=== PATIENT | male | born 1950 | race Hispanic/Latino ===

== ENCOUNTER 2018-06-20 10:08 | Emergency (ER) | payer MEDICARE ==
[~2018-06-20] VITALS: Ht 170.2 cm; Wt 87.5 kg
--- NOTE | 2018-06-20 10:47 | NUR ---
PATIENT TO ROOM 5
--- NOTE | 2018-06-20 11:17 | NUR ---
BLADDER SCAN 317
[2018-06-20 11:38] LABS: BASOPHILS % 0.2 % (0.0-1.0); EOSINOPHILS # (AUTO) 0.1 (0.0-0.4); EOSINOPHILS % 0.8 % (0.0-6.0); HEMATOCRIT 43.3 % (38.2-49.6); LYMPHOCYTES # (AUTO) 1.8 (1.0-3.2); LYMPHOCYTES % 13.8 % (18.0-39.1); MEAN CORPUSCULAR HEMOGLOBIN 30.9 pg (28-32); MEAN CORPUSCULAR HGB CONC 34.6 g/dL (31-35); MEAN CORPUSCULAR VOLUME 89.1 fL (81-99); MONOCYTES # (AUTO) 1.3 (0.2-0.8); MONOCYTES % 10.5 % (4.4-11.3); NEUTROPHILS # (AUTO) 9.4 (2.1-6.9); NEUTROPHILS % 74.2 % (38.7-80.0); PLATELET COUNT 217 x10e3/uL (140-360); RED BLOOD COUNT 4.86 x10e6/uL (4.3-5.7); RED CELL DISTRIBUTION WIDTH 11.9 % (11.7-14.4)
[2018-06-20 11:59] LABS: ALANINE AMINOTRANSFERASE 19 IU/L (0-55); ALBUMIN 3.7 g/dL (3.5-5.0); ALBUMIN/GLOBULIN RATIO 0.9 (0.8-2.0); ALKALINE PHOSPHATASE 94 IU/L (40-150); ANION GAP 10.6 mmol/L (8-16); BLOOD UREA NITROGEN 12 mg/dL (7-26); BUN/CREATININE RATIO 14 (6-25); CALCIUM 9.9 mg/dL (8.4-10.2); CARBON DIOXIDE 28 mmol/L (22-29); CHLORIDE 101 mmol/L (98-107); CREATININE, SERUM 0.88 mg/dL (0.72-1.25); EST GLOMERULAR FILTRATION RATE > 60 ML/MIN (60-); GLUCOSE 85 mg/dL (74-118); MAGNESIUM 2.3 MG/DL (1.3-2.1); POTASSIUM 3.6 mmol/L (3.5-5.1); SODIUM 136 mmol/L (136-145)
--- NOTE | 2018-06-20 12:08 | NUR ---
BLADDER SCAN, 90ML AFTER VOIDING.
[2018-06-20] MEDS ORDERED: CEFTRIAXONE SOD 1 GM/NS 50 ML 50 ML IV ONE (12:45)
[2018-06-20 12:52] LABS: CLARITY,URINE CLEAR (CLEAR); COLOR,URINE YELLOW (YELLOW); KETONES,URINE NEGATIVE (NEGATIVE); LEUKOCYTE ESTERASE ,URINE 1+ (NEGATIVE); NITRITE,URINE NEGATIVE (NEGATIVE); PROTEIN,URINE DIPSTICK TRACE (NEGATIVE); URINE UROBILINOGEN 0.2 mg/dL (0.2 - 1)
[2018-06-20 12:53] LABS: BILIRUBIN,URINE NEGATIVE (NEGATIVE)
[2018-06-20 12:54] LABS: EPITHELIAL CELLS,URINE RARE /LPF; WBC,URINE (MAN) 21-50 /HPF (0-5)
[2018-06-20 12:55] LABS: RBC,URINE 0-5 /HPF (0-5); TRANSITIONAL EPI CELLS,URINE RARE
[2018-06-20 12:56] LABS: BACTERIA,URINE RARE /HPF
--- NOTE | 2018-06-24 14:43 | NUR ---
Reviewed patient Urine culture antibiogram. Patient's prescribed medication accourding to the antibiogram shows the patient is resistant to Cefuroxime. Will call in new prescription to patient's pharmacy for Bactrim DS 1 PO BID x 10 days.
== END 2018-06-20 14:48 | disposition home or self-care (01) ==
LOC: ER 10:08
DX: R33.9 Retention of urine, unspecified (principal); R30.0 Dysuria; N40.1 Benign prostatic hyperplasia with lower urinary tract symptoms; N41.1 Chronic prostatitis
CPT/HCPCS: 36415; 80053; 81001; 83735; 85025; 87086; 87186; 99284; J0696

== ENCOUNTER → 2018-07-20 | Day surgery (SDC) | payer MEDICARE ==
[2018-07-17 13:44] LABS: BASOPHILS % 0.3 % (0.0-1.0); EOSINOPHILS # (AUTO) 0.2 (0.0-0.4); EOSINOPHILS % 2.8 % (0.0-6.0); HEMATOCRIT 43.7 % (38.2-49.6); HEMOGLOBIN 14.9 g/dL (14.0-18.0); LYMPHOCYTES # (AUTO) 1.8 (1.0-3.2); LYMPHOCYTES % 29.7 % (18.0-39.1); MEAN CORPUSCULAR HEMOGLOBIN 30.3 pg (28-32); MEAN CORPUSCULAR HGB CONC 34.1 g/dL (31-35); MEAN CORPUSCULAR VOLUME 88.8 fL (81-99); MONOCYTES # (AUTO) 0.5 (0.2-0.8); MONOCYTES % 7.8 % (4.4-11.3); NEUTROPHILS # (AUTO) 3.5 (2.1-6.9); NEUTROPHILS % 59.1 % (38.7-80.0); PLATELET COUNT 202 x10e3/uL (140-360); RED BLOOD COUNT 4.92 x10e6/uL (4.3-5.7); RED CELL DISTRIBUTION WIDTH 12.3 % (11.7-14.4)
[2018-07-17 14:03] LABS: ANION GAP 10.7 mmol/L (8-16); BLOOD UREA NITROGEN 16 mg/dL (7-26); BUN/CREATININE RATIO 18 (6-25); CALCIUM 9.2 mg/dL (8.4-10.2); CARBON DIOXIDE 26 mmol/L (22-29); CHLORIDE 104 mmol/L (98-107); CREATININE, SERUM 0.89 mg/dL (0.72-1.25); EST GLOMERULAR FILTRATION RATE > 60 ML/MIN (60-); GLUCOSE 97 mg/dL (74-118); POTASSIUM 3.7 mmol/L (3.5-5.1); SODIUM 137 mmol/L (136-145)
--- NOTE | 2018-07-17 14:54 | Diagnostic Imaging Report ---
EXAMINATION: PA and lateral views of the chest. COMPARISON: None CLINICAL HISTORY: Preoperative study for urological procedure DISCUSSION: The lungs are well-inflated. There is blunting of the left lateral and posterior costophrenic sulci which may reflect a small effusion or pleural thickening. Additionally, there is a 2.7 cm nodular opacity projecting over the left lung apex. The right lung is clear. No acute osseous abnormality. 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 IMPRESSION: 2.7 cm left upper lobe nodule should be further evaluated by CT scan of the chest with contrast if not already performed at an outside facility. Associated small left pleural effusion versus pleural thickening. Findings were discussed by telephone with Ms. Lacey, diagnostic medical sonographer for Dr. Rob at 2:45 pm 07/17/18. Signed by: Dr. Stanton Deleon M.D. on 07/17/2018 2:51 PM
[~2018-07-20] MED LIST: AMLODIPINE; ATORVASTATIN CA10 MG PO; BACTRIM 400-801 EACH; BELLADONNA/OPIUM 60 MG SUPP PR ONE; CEFTRIAXONE SOD 1 GM/NS 50 ML 50 ML IV ONE; DEXAMETHASONE SOD PHOS INJ 4 MG/ML VIAL ONE; FENTANYL CITRATE/PF 100MCG/2 ML INJ ONE; GENTAMICIN 80MG/NS 100 ML 100 ML IV ONE; IOPAMIDOL 300MG/ML 50ML INFUS..BTL IV ONE; LIDOCAINE HCL 2% LOCAL INJ 5 ML SDV VIAL INJ ONE; METFORMIN HCL500 MG PO; MIDAZOLAM HCL 2 MG/2 ML VIAL ONE; ONDANSETRON HCL INJ 2MG/ML 2ML 2 MG/ML VIAL ONE; PROPOFOL IV EMULSION 10 MG/ML 20 ML VIAL ONE; SEVOFLURANE INHAL SOLN 250 ML PEN BTL ONE
--- OUTSIDE RECORDS SUMMARY | 2018-07-20 05:11 | XMS REPORT ---
Author [facility] Address Unknown Phone Unavailable Care Team Providers Care Tank Assembler Name Role Phone EDYTA OBRIEN ESTEPHANIA Unavailable ALEX ROB Unavailable Unavailable JAJA HERNANDEZ M.D. Unavailable Unavailable Problems This patient has no known problems. Allergies, Adverse Reactions, Alerts This patient has no known allergies or adverse reactions. Medications This patient has no known medications. Encounters Start Date/Time End Date/Time Encounter Type Admission Type Attending [facility] Care Department Encounter ID 2016-11-07 00:00:00 2016-11-07 00:00:00 Outpatient [facility] [id number] 2016-10-21 16:15:44 2016-10-21 16:15:44 Outpatient [facility] [id number] 2016-10-02 09:24:14 2016-10-02 09:24:14 Outpatient [facility] [id number] Results Test Description Test Time Test Comments Text Results Atomic Results Result Comments CHEST 2 VIEWS 2018-07-17 14:43:00 [facility] [address] [address] Patient Name: KEVIN COYNE MR #: [id number] : 1950 Age/Sex: 67/M Req #: [id number] Adm Physician: Ordered by: ALEX ROB MD Report #: [id number] Location: OR Room/Bed: Procedure: [id number] DX/CHEST 2 VIEWS Exam Date: 07/17/18 Exam Time: 1341 REPORT STATUS: Signed EXAMINATION: PA and lateral views of the chest. COMPARISON: None CLINICAL HISTORY: Preoperative study for urological procedure DISCUSSION: The lungs are well-inflated. There is blunting of the left lateral and posterior costophrenic sulci which may reflect a small effusion or pleural thickening. Additionally, there is a 2.7 cm nodular opacity projecting over the left lung apex. The right lung is clear. No acute osseous abnormality. 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 IMPRESSION: 2.7 cm left upper lobe nodule should be further evaluated by CT scan of the chest with contrast if not already performed at an outside facility. Associated small left pleural effusion versus pleural thickening. Findings were discussed by telephone with Ms. Lacey, manager medical device for Dr. Rob at 2:45 pm 07/17/18. Signed by: Dr. Yo Foy M.D. on 07/17/2018 2:51 PM Dictated By: YO FOY MD 1451 Transcribed By: IRASEMA on 07/17/18 1451 COPY TO: ALEX ROB MD POC Glucose, Blood 2017-06-24 09:58:00 POC Glucose (test code=POCGLUC) 100 mg/dL 70-115 If you consider your patient critically ill, the Micah Accu-Chek InformII metershould not be used for Glucose determinations.Draw a venous Glucose and send to the Main Lab for Analysis. POC Glucose, [id number] 08:05:00* Test Item Value Reference Range Comments POC Glucose (test code=POCGLUC) 98 mg/dL 70-115 If you consider your patient critically ill, the Micah Accu-Chek InformII metershould not be used for Glucose determinations.Draw a venous Glucose and send to the Main Lab for Analysis. Culture, [id number] 09:44:00Specimen: UrineCollected: 06/04/2017 13:00 Status: Final Last Updated: 06/06/2017 09:44 Culture Result (Final) (Final) 06/05/17 No growth 24 hours 06/06/17 No growth 48 hours Urinalysis [id number] 15:14:00* Test Item Value Reference Range Comments Color (test code=COLOR) Yellow Yellow,Straw,Pl yellow Clarity (test code=CLAR) Clear Clear Specific [place] (test code=SPGR) 1.009 1.001-1.035 pH (test code=PH) 7.0 5.0-9.0 Ketone (test code=KET) Negative mg/dL Negative Glucose (test code=GLUCUR) Negative mg/dL Negative Protein (test code=PROT) Negative mg/dL Negative Bilirubin (test code=BILI) Negative mg/dL Negative Occult Blood (test code=UDOB) Negative Negative Urobilinogen (test code=UROB) 0.2 mg/dL 0.2-1.0 Nitrite (test code=NIT) Negative Negative Leuk Esterase (test code=LEUK) Negative Negative Micros Exam (test code=MEXAM) Not indicated Comprehensive Metabolic [id number] 14:17:00* Test Item Value Reference Range Comments Sodium (test code=NA) 138 mmol/L 135-145 Potassium (test code=K) 3.9 mmol/L 3.5-5.1 Chloride (test code=CL) 98 mmol/L 98-105 Carbon Dioxide (test code=CO2) 28 mmol/L 22-29 Glucose (test code=GLU) 126 mg/dL 70-115 Blood Urea Nitrogen (test code=BUN) 13 mg/dL 8-23 Creatinine (test code=CREAT) 0.8 mg/dL 0.7-1.2 Calcium (test code=CA) 9.6 mg/dL 8.3-10.5 Prot Total (test code=TP) 7.6 g/dL 6.4-8.3 Albumin (test code=ALB) 4.5 g/dL 3.5-5.2 A/G Ratio (test code=AGRATIO) 1.5 Ratio Globulin (test code=GLOB) 3.1 2.9-3.1 Bili Total (test code=TBIL) 0.5 mg/dL 0.1-0.9 Alk Phos (test code=APHOS) 120 U/L 40-129 AST (test code=AST) 19 U/L 1-40 ALT (test code=ALT) 19 U/L 1-41 BUN/Creatinine Ratio (test code=BCRATIO) 16.3 Anion Gap (test code=AGAP) 12 mmol/L 7-16 Estimated GFR (test code=GFR) >60 mL/min/1.73m2 eGFR (estimated Glomerular Filtration Rate) is an estimated value,calculated from the patient's serum creatinine using the MDRD equation.It is NOT the patient's actual GFR. The eGFR provides a more clinicallyuseful measure of kidney disease than serum creatinine alone.This calculation takes sex and race into account, if the informationis provided. If the race is not provided, and the patient isAfrican-Hungarian, multiply by 1.212. If sex is not provided, and thepatient is female, multiply by 0.742. Results for patients <18 years ofage have not been validated by the MDRD study and should be interpretedwith caution.eGFR Result Interpretation:eGFR > or=60 is in the Normal RangeeGFR < 60 may mean kidney diseaseeGFR < 15 may mean kidney failureRanges recommended by the National Kidney Foundat ion,http://nkdep.nih.gov CBC with [id number] 13:37:00* Test Item Value Reference Range Comments WBC (test code=WBC) 6.6 K/cumm 4.4-10.5 RBC (test code=RBC) 4.97 M/cumm 4.10-5.70 Hemoglobin (test code=HGB) 15.1 gm/dL 13.4-17.4 Hematocrit (test code=HCT) 44.2 % 38.7-52.0 MCV (test code=MCV) 89.0 fL 80-100 MCH (test code=MCH) 30.4 pg 27.0-32.5 MCHC (test code=MCHC) 34.1 g/dL 32.0-37.5 RDW (test code=RDW) 12.7 % 11.5-14.5 Platelet Count (test code=PLTCT) 225 K/cumm 140-440 MPV (test code=MPV) 10.2 fL Diff Method (test code=DIFFM) Auto Neutrophil (test code=NEUT) 66.5 % 36-70 Lymphocyte (test code=LYMPH) 25.4 % 12-44 Monocyte (test code=MONO) 5.7 % 0-11 Eosinophil (test code=EOS) 2.1 % 0-7 Basophil (test code=BASO) 0.5 % 0-2 Neutro Abs (test code=ANEUT) 4.4 K/cumm 1.6-7.4 Lymph Abs (test code=ALYMPH) 1.7 K/cumm 0.5-4.6 [place] Abs (test code=AMONO) 0.4 K/cumm 0.0-1.2 Eos Abs (test code=AEOS) 0.14 K/cumm 0.00-0.74 Baso Abs (test code=ABASO) 0.0 K/cumm 0.00-0.21
[2018-07-20 08:30] VITALS: BP 158/89
--- NOTE | 2018-08-20 05:31 | Operative Report ---
DATE OF PROCEDURE: 07/20/2018 SURGEON: Raymundo Rob MD PREOPERATIVE DIAGNOSES: 1. Obstructive benign prostatic hyperplasia. 2. Incomplete bladder emptying. POSTOPERATIVE DIAGNOSES: 1. Distal urethral stricture disease. 2. Obstructive benign prostatic hyperplasia. 3. Incomplete bladder emptying. OPERATIONS PERFORMED: 1. Cystourethroscopy with calibration and dilation of severe distal urethral stricture (separate procedure performed for the diagnosis of the stricture). 2. Cystourethroscopy with bilateral ureteral catheterization and retrograde ureteropyelography (separate procedure performed for BPH and incomplete bladder emptying). 3. Interpretation of retrograde ureteropyelography. 4. Supervision of fluoroscopy, no radiologist present. 5. Interpretation of cystography. ANESTHESIA: General. COMPLICATIONS: None. CLINICAL SUMMARY: Waldo Restrepo is a 67-year-old man, who had a previous transurethral resection of the prostate by another urologist. The patient has severe lower tract voiding symptomatology and is brought for evaluation and management. He is aware of the risks of bleeding, infection, injury to adjacent structures, need for additional procedures and elected to proceed. OPERATIVE PROCEDURE IN DETAIL: Informed consent was verified. Waldo Restrepo was properly identified, taken to the operating room, placed on the cystoscopy table in supine position. Anesthesia was uneventfully begun. The patient was then carefully gently repositioned in dorsal lithotomy position with all pressure points well padded. His genitalia were prepared and draped in usual sterile fashion. The cystoscope sheath with the visual obturator in place was inserted, barely able to be inserted in the patient's urethral meatus, proximal to that there was a severe stricture. We calibrated the stricture with approximately 8-Hungarian in size and progressively dilated to 26-Hungarian in size. The stricture was extremely dense. The cystoscope sheath was then guided down the urethra, which was otherwise unremarkable through the normal sphincteric region through the prostate bed, which was significant for being wide open status post transurethral resection of prostate with complete re-epithelialization of the prostatic bed. Panendoscopy of the bladder revealed grade 2 trabeculations, but no tumors, no stones, no diverticula, and no suspicious mucosal lesions were identified. An 8-[place] catheter was used to cannulate each ureter and retrograde ureteral pyelograms were performed. Interpretation of retrograde ureteropyelography: Contrast was instilled in retrograde fashion bilaterally. There were no tumors, no stones, and no diverticula. Unobstructed drainage was observed fluoroscopically bilaterally. The cystoscope was withdrawn. A [place] catheter was placed. Interpretation of cystography: Contrast was injected via the [place] catheter. The [place] catheter balloon was in the patient's bladder. The prostatic bed was wide open, status post transurethral resection. I could not fireproof door assembler reflux due to prior retrograde pyelograms. Belladonna and opium suppository was placed revealing a 40 g prostate that is smooth, non-fluctuant without any nodules. The patient was then uneventfully reversed from anesthesia and taken to recovery room in stable condition. There were no complications during the procedure. He tolerated the procedure well. Plans will be to follow the patient up in approximately 2 weeks to remove his [place] catheter. Ongoing urological followup is a must. Raymundo Rob MD [place]/MODL /[id number] cc: Starr Robbins MD
== END | disposition home or self-care (01) ==
LOC: OR 05:09
PROVIDERS: ATTEND Urology
DX: N35.919 Unspecified urethral stricture, male, unspecified site (principal); N40.1 Benign prostatic hyperplasia with lower urinary tract symptoms; N13.8 Other obstructive and reflux uropathy; R39.14 Feeling of incomplete bladder emptying; R33.8 Other retention of urine; R35.0 Frequency of micturition; R35.1 Nocturia; N32.89 Other specified disorders of bladder; Z98.890 Other specified postprocedural states; I10 Essential (primary) hypertension; E11.9 Type 2 diabetes mellitus without complications; E78.00 Pure hypercholesterolemia, unspecified; Z01.810 Encounter for preprocedural cardiovascular examination; Z01.812 Encounter for preprocedural laboratory examination; Z01.818 Encounter for other preprocedural examination; Z79.84 Long term (current) use of oral hypoglycemic drugs; Z68.30 Body mass index [BMI] 30.0-30.9, adult
CPT/HCPCS: 36415 ×2; 52281; 71046; 74420; 80048; 82948; 85025; 93005; C1758; J0696; J1100; J1580; J2001; J2250; J2405; J2704; Q9967

== ENCOUNTER → 2020-09-06 | Day surgery (SDC) | payer MEDICARE, OTHER ==
[2020-09-01 12:35] LABS: BASOPHILS % 0.5 % (0.0-1.0); EOSINOPHILS # (AUTO) 0.2 (0.0-0.4); EOSINOPHILS % 2.4 % (0.0-6.0); HEMATOCRIT 39.9 % (38.2-49.6); HEMOGLOBIN 13.9 g/dL (14.0-18.0); LYMPHOCYTES % 24.6 % (18.0-39.1); MEAN CORPUSCULAR HEMOGLOBIN 31.2 pg (28-32); MEAN CORPUSCULAR HGB CONC 34.8 g/dL (31-35); MEAN CORPUSCULAR VOLUME 89.5 fL (81-99); MONOCYTES # (AUTO) 0.6 (0.2-0.8); MONOCYTES % 7.3 % (4.4-11.3); NEUTROPHILS # (AUTO) 5.3 (2.1-6.9); NEUTROPHILS % 64.8 % (38.7-80.0); PLATELET COUNT 212 x10e3/uL (140-360); RED BLOOD COUNT 4.46 x10e6/uL (4.3-5.7); RED CELL DISTRIBUTION WIDTH 12.3 % (11.7-14.4)
[2020-09-01 13:12] LABS: ANION GAP 14.7 mmol/L (8-16); BLOOD UREA NITROGEN 18 mg/dL (7-26); BUN/CREATININE RATIO 19 (6-25); CARBON DIOXIDE 28 mmol/L (22-29); CHLORIDE 101 mmol/L (98-107); CREATININE, SERUM 0.97 mg/dL (0.72-1.25); EST GLOMERULAR FILTRATION RATE > 60 ML/MIN (60-); GLUCOSE 101 mg/dL (74-118); POTASSIUM 3.7 mmol/L (3.5-5.1); SODIUM 140 mmol/L (136-145)
[~2020-09-06] MED LIST changes: +B&O 60MG R/S 60 MG SUPP PR ONE; -BELLADONNA/OPIUM 60 MG SUPP PR ONE; +CEFTRIAXONE SOD 1 GM VIAL ONE; -CEFTRIAXONE SOD 1 GM/NS 50 ML 50 ML IV ONE; -FENTANYL CITRATE/PF 100MCG/2 ML INJ ONE; -GENTAMICIN 80MG/NS 100 ML 100 ML IV ONE; +HYDROCHLOROTHIA25 MG PO; -MIDAZOLAM HCL 2 MG/2 ML VIAL ONE; +OXYBUTYNIN CHLOR5 MG PO; +POVIDONE IODINE 0.05% 0.05 % ML PO ONE; +SODIUM CHLORIDE 0.9% 50ML 50 ML ONE; +ZESTRIL10 MG PO
[2020-09-06 11:15] VITALS: BP 161/84
== END | disposition home or self-care (01) ==
LOC: OR 07:25
PROVIDERS: ATTEND Urology
DX: N39.0 Urinary tract infection, site not specified (principal); N35.919 Unspecified urethral stricture, male, unspecified site; N32.89 Other specified disorders of bladder; I10 Essential (primary) hypertension; E78.5 Hyperlipidemia, unspecified; E11.9 Type 2 diabetes mellitus without complications; E66.9 Obesity, unspecified; Z98.890 Other specified postprocedural states; Z01.810 Encounter for preprocedural cardiovascular examination; Z01.812 Encounter for preprocedural laboratory examination; Z01.818 Encounter for other preprocedural examination; Z20.822 Contact with and (suspected) exposure to COVID-19; Z79.84 Long term (current) use of oral hypoglycemic drugs; M19.90 Unspecified osteoarthritis, unspecified site
CPT/HCPCS: 36415; 71046; 74420; 80048; 82948; 85025; 93005; C1758; J0696; J1100; J2001; J2405; U0002